=== PATIENT | male | born 1980 | race Caucasian/White ===

== ENCOUNTER 2018-08-15 08:50 | Emergency (ER) | payer BC ==
[2018-08-15 09:15] VITALS: BP 142/84
--- NOTE | 2018-08-15 09:30 | UC ---
Skin Complaint HPI - History of Current Complaint Chief Complaint: UCForeignBody Time Seen by Provider: 08/15/18 09:17 Stated Complaint: TICK RT SHOULDER Hx Obtained From: Patient Pain Intensity: 0 - Allergy/Home Medications Allergies/Adverse Reactions: Allergies Allergy/AdvReac Type Severity Reaction Status Date / Time No Known Allergies Allergy Verified 08/15/18 09:07 PMH/Surg Hx/FS Hx/Imm Hx Endocrine History: Hypothyroidism Psychological History: Depression - Surgical History Surgical History: Yes Surgery Procedure, Year, and Place: 1996 meniscus repair; October 2011 ruptured achilles tendon L - Family History Known Family History: Positive: Non-Contributory - Social History Occupation: Employed Full-time Lives: With Family Alcohol Use: Rare Substance Use Type: None Smoking Status (MU): Light Every Day Tobacco Smoker Type: Cigarettes Amount Used/How Often: 2 cigarrettes a day Review of Systems All Other Systems Reviewed And Are Negative: Yes Constitutional: Negative: Fever, Chills Skin: Positive: Other - See HPI ENT: Positive: Negative Respiratory: Positive: Negative Cardiovascular: Positive: Negative Gastrointestinal: Positive: Negative Musculoskeletal: Negative: Arthralgia, Myalgia Neurological: Positive: Negative Is Patient Immunocompromised?: No Physical Exam - Summary Physical Exam Summary: GENERAL APPEARANCE: Well developed, well nourished, alert and cooperative, and appears to be in no acute distress. CARDIAC: Normal S1 and S2. No S3, S4 or murmurs. Rhythm is regular. There is no peripheral edema, cyanosis or pallor. Extremities are warm and well perfused. Capillary refill is less than 2 seconds. Peripheral pulses intact. LUNGS: Clear to auscultation without rales, rhonchi, wheezing or diminished breath sounds. ABDOMEN: Positive bowel sounds. Soft, nondistended, nontender. No guarding or rebound. No masses or hepatosplenomegally. MUSKULOSKELETAL: ROM intact to all extremities. No joint erythema or tenderness. Normal muscular development. Normal gait. SKIN: 3 cm area of erythema with small area of excoriation centrally <0.5 cm in diameter with a retained mouthpart. Triage Information Reviewed: Yes Vital Signs: Initial Vital Signs Temp 97.4 F 08/15/18 09:08 Pulse 85 08/15/18 09:08 Resp 16 08/15/18 09:08 BP 142/84 08/15/18 09:08 Pulse Ox 99 08/15/18 09:08 Vital Signs Reviewed: Yes Course/Dx - Course Course Of Treatment: 38-year-old male presents with tick bite to his right shoulder. States he found the tick at approximately 1:30 in the morning and immediately removed the tick although he thinks there is a retained piece at the site of the bite. He is unsure how long the tick was embedded or if it was engorged. Denies fever, chills, flulike symptoms, myalgias, joint pain or swelling. Afebrile. Hypertensive otherwise vital signs stable. Exam remarkable for 3 cm area of erythema with small area of excoriation centrally <0.5 cm in diameter with a retained mouthpart. Since we could not determine the duration of time that the tick was embedded and he was unsure whether it was engorged I am treating him prophylactically for Lyme disease with doxycycline 200 mg 1 dose. I reviewed signs and symptoms for Lyme disease to be monitored for over the next 3 weeks. Patient understands that he needs to seek medical attention should any of these develop. - Differential Diagnoses - Skin Complaint Differential Diagnoses: Local Allergic Reaction, Tick Born Illness - Diagnoses Provider Diagnosis: Tick bite of right shoulder, Elevated blood pressure reading Discharge - Sign-Out/Discharge Documenting (check all that apply): Patient Departure All imaging exams completed and their final reports reviewed: No Studies - Discharge Plan Condition: Stable Disposition: HOME Patient Education Materials: Tick Bite (ED) Referrals: Cameron Biggs MD [Primary Care Provider] - Additional Instructions: You appear to have a retained mouthpart from the tick after its removal. This does not increase the risk of Lyme disease and will eventually work its way out on its own. Because there is a question regarding how long the tick may have been embedded we have given you a one time dose of an antibiotic called doxycycline to prevent Lyme disease. You will still need to monitor for signs of Lyme disease over the next 3 weeks including a bullseye rash, fever, flu-like symptoms, muscle aches, joint pain or swelling. Seek immediate medical attention should any of these occur. Your blood pressure was elevated in the clinic today. It is recommended that you follow up with your primary care provider within 4 weeks to have this rechecked. - Billing Disposition and Condition Condition: STABLE Disposition: Home - Attestation Statements Provider Attestation: Per institutional requirements, I have reviewed the chart, however, I was not consulted specifically or made aware of this patient by the midlevel provider. I did not personally evaluate, interact with , or disposition this patient.
[2018-08-15] MEDS ORDERED: DOXYcycline CAP(*) 100 MG PO ONE (09:45)
== END 2018-08-15 09:55 | disposition home or self-care (01) ==
LOC: UCEAST 08:50
DX: S40.261A Insect bite (nonvenomous) of right shoulder, initial encounter (principal); W57.XXXA Bitten or stung by nonvenomous insect and other nonvenomous arthropods, initial encounter; Y92.9 Unspecified place or not applicable; R03.0 Elevated blood-pressure reading, without diagnosis of hypertension; E03.9 Hypothyroidism, unspecified; F32.9 Major depressive disorder, single episode, unspecified; F17.210 Nicotine dependence, cigarettes, uncomplicated
CPT/HCPCS: 99202; A9270-GY; G0463

== ENCOUNTER 2019-03-02 07:31 | Emergency (ER) | payer BC ==
[2019-03-02 07:44] VITALS: BP 158/81
--- NOTE | 2019-03-02 07:49 | UC ---
Throat Pain/Nasal Virgilio HPI - HPI Summary HPI Summary: The patient is a 38-year-old male that presents here with a 24-hour history of sore throat and uvular edema. He denies any fever or chills. He denies any headache or myalgias. He denies any nasal congestion or postnasal drip. He denies any sinus pressure or pain. He has no chest pain or shortness of breath. He has been able to eat and drink without difficulty. He works as a [employer] teacher and has recently been exposed to strep throat. - History of Current Complaint Chief Complaint: UCRespiratory Stated Complaint: SORE THROAT Time Seen by Provider: 03/02/19 07:38 Hx Obtained From: Patient Onset/Duration: Gradual Onset, Lasting Hours Severity: Mild Pain Intensity: 3 Pain Scale Used: 0-10 Numeric Cough: None Associated Signs & Symptoms: Positive: Negative - Epiglottits Risk Factors Epiglottis Risk Factors: Negative - Allergies/Home Medications Allergies/Adverse Reactions: Allergies Allergy/AdvReac Type Severity Reaction Status Date / Time No Known Allergies Allergy Verified 03/02/19 07:44 Home Medications: Home Medications Ibuprofen 400 mg PO ONCE PRN 03/02/19 [History Confirmed 03/02/19] PMH/Surg Hx/FS Hx/Imm Hx Previously Healthy: Yes Cardiovascular History: Hypertension - life style modification - Surgical History Surgical History: Yes Surgery Procedure, Year, and Place: 1996 meniscus repair; October 2011 ruptured achilles tendon L - Family History Known Family History: Positive: Hypertension, Non-Contributory - Social History Alcohol Use: Rare Substance Use Type: None Smoking Status (MU): Light Every Day Tobacco Smoker Type: Cigarettes Amount Used/How Often: 2 cigarrettes a day Household Exposure Type: Cigarettes Review of Systems All Other Systems Reviewed And Are Negative: Yes Constitutional: Positive: Negative Skin: Positive: Negative Eyes: Positive: Negative ENT: Positive: Sore Throat Respiratory: Positive: Negative Cardiovascular: Positive: Negative Gastrointestinal: Positive: Negative Genitourinary: Positive: Negative Motor: Positive: Negative Neurovascular: Positive: Negative Musculoskeletal: Positive: Negative Neurological: Positive: Negative Psychological: Positive: Negative Physical Exam Triage Information Reviewed: Yes Appearance: Well-Appearing, No Pain Distress, Well-Nourished Vital Signs: Initial Vital Signs Temp 97.9 F 03/02/19 07:38 Pulse 98 03/02/19 07:38 Resp 18 03/02/19 07:38 BP 158/81 03/02/19 07:38 Pulse Ox 100 03/02/19 07:38 Vital Signs Reviewed: Yes Eyes: Positive: Conjunctiva Clear ENT: Positive: Hearing grossly normal, Pharyngeal erythema, Uvula midline - midline but swollen and red. Negative: Nasal congestion, Nasal drainage, Tonsillar swelling, Tonsillar exudate, Trismus Neck: Positive: Supple, Nontender, No Lymphadenopathy Respiratory: Positive: Lungs clear, Normal breath sounds, No respiratory distress Cardiovascular: Positive: RRR Abdominal Exam: Normal Bowel Sounds: Positive: Present Musculoskeletal: Positive: ROM Intact, No Edema Neurological: Positive: Alert Psychological Exam: Normal Skin Exam: Normal Diagnostics - Laboratory Lab Results: strep negative Throat Pain/Nasal Course/Dx - Differential Dx/Diagnosis Provider Diagnosis: Pharyngitis, Uvular edema Discharge ED - Sign-Out/Discharge Documenting (check all that apply): Patient Departure All imaging exams completed and their final reports reviewed: No Studies - Discharge Plan Condition: Stable Disposition: HOME Patient Education Materials: Pharyngitis (ED) Referrals: Gary Zaragoza MD [Medical Doctor] - 4 Days (if not better) - Billing Disposition and Condition Condition: STABLE Disposition: Home
[2019-03-02] MEDS ORDERED: predniSONE TAB* 20 MG PO ONE (07:53)
--- NOTE | 2019-03-05 15:09 | UC ---
- Progress Note Progress Note: Pt on cephalexin culture sensitive to cefazolin no change vinniej 03/05/19 Course/Dx - Diagnoses Provider Diagnoses: Pharyngitis, Uvular edema Discharge ED - Sign-Out/Discharge Documenting (check all that apply): Post-Discharge Follow Up All imaging exams completed and their final reports reviewed: No Studies - Discharge Plan Condition: Stable Disposition: HOME Prescriptions: Cephalexin CAP* [Keflex CAP*] 500 mg PO BID #14 cap predniSONE [Prednisone 20 MG TAB] 60 mg PO DAILY #6 tab Patient Education Materials: Pharyngitis (ED) Forms: *Work Release Referrals: Gary Zaragoza MD [Medical Doctor] - 4 Days (if not better) Additional Instructions: Strep test negative You had today's dose of prednisone I suggest you take your prednisone in the mornings recheck for new or worsening symptoms Your BP was elevated here Recheck in 1-3 mos you may have Sleep Apnea consider a sleep study - Billing Disposition and Condition Condition: STABLE Disposition: Home
== END 2019-03-02 08:30 | disposition home or self-care (01) ==
LOC: UCEAST 07:31
DX: J02.9 Acute pharyngitis, unspecified (principal); K13.79 Other lesions of oral mucosa; I10 Essential (primary) hypertension; F17.210 Nicotine dependence, cigarettes, uncomplicated
CPT/HCPCS: 87070; 87077; 87186; 87651; 99212; G0463; J7512